=== PATIENT | male | born 1950 | race Caucasian/White ===

== ENCOUNTER 2020-03-26 09:54 | Emergency (ER) | payer OTHER ==
[~2020-03-26] VITALS: Ht 190.5 cm; Wt 147.7 kg
[~2020-03-26 09:54] MED LIST: CIPR250T4 PO; FURO20TA4 PO; LISI1TAB29 PO; METR500T PO; PANT40TA54 PO
[2020-03-26 11:11] LABS: BASOPHILS # (AUTO) 0.1 X10'3 (0-0.2); BASOPHILS % (AUTO) 0.8 % (0-1); EOSINOPHILS # (AUTO) 0.1 X10'3 (0-0.9); HEMATOCRIT 30.6 % (42.0-52.0); HEMOGLOBIN 9.9 g/dl (14.0-17.9); LYMPHOCYTES % (AUTO) 15.6 % (21-51); MEAN CORPUSCULAR HEMOGLOBIN 29.8 PG (27.0-31.0); MEAN CORPUSCULAR HGB CONC 32.3 g/dL (33.0-36.5); MEAN PLATELET VOLUME 6.5 FL (7.4-10.4); MONOCYTES # (AUTO) 0.7 X10'3 (0-0.9); MONOCYTES % (AUTO) 10.9 % (2-12); NEUTROPHILS # (AUTO) 4.5 X10'3 (1.8-7.7); NEUTROPHILS % (AUTO) 70.7 % (42-75); PLATELET COUNT 518 X10'3 (140-440); RED BLOOD COUNT 3.33 X10'6 (4.70-6.10); RED CELL DISTRIBUTION WIDTH 19.8 % (11.5-14.5); WHITE BLOOD COUNT 6.4 X10'3 (4.5-11.0)
[2020-03-26 11:17] LABS: CLARITY,URINE CLEAR (Clear); COLOR,URINE STRAW (Yellow); GLUCOSE, URINE NEGATIVE (Neg); KETONES,URINE NEGATIVE (Neg); LEUKOCYTE ESTERASE ,URINE NEGATIVE (Neg); NITRITES, URINE NEGATIVE (Neg); OCCULT BLOOD,URINE NEGATIVE (Neg); PROTEIN,URINE NEGATIVE (Neg); UROBILINOGEN,URINE 0.2 E.U/dL (0.2-1.0)
[2020-03-26] MEDS ORDERED: LIDOcaine 2% 10ml TOPICAL JELLY (Urojet) TP ONE (11:20)
[2020-03-26 11:22] LABS: UA COLLECTION TYPE FOLEY CATH
[2020-03-26 11:25] LABS: PARTIAL THROMBOPLASTIN TIME 32 SECONDS (22-32)
[2020-03-26 11:26] LABS: ALANINE AMINOTRANSFERASE 9 U/L (12-78); ALBUMIN 1.7 G/DL (3.4-5.0); ALBUMIN/GLOBULIN RATIO 0.4 (1.1-1.5); ALKALINE PHOSPHATASE 53 IU/L (46-116); ANION GAP 11 (8-16); ASPARTATE AMINO TRANSFERASE 10 U/L (10-37); BILIRUBIN,TOTAL 0.3 MG/DL (0.1-1.0); BLOOD UREA NITROGEN 8 MG/DL (7-18); BUN/CREATININE RATIO 6.3 (5.4-32.0); CALCIUM 8.3 MG/DL (8.5-10.1); CHLORIDE 102 MMOL/L (99-107); CREATININE 1.27 MG/DL (0.60-1.10); GLUCOSE 100 MG/DL (70-104); LIPASE < 50 U/L (73-393); SODIUM 139 MMOL/L (135-145); TOTAL CARBON DIOXIDE 26.4 MMOL/L (24-32); TOTAL PROTEIN 6.2 G/DL (6.4-8.2); eGFR 56 ML/MIN
[2020-03-26 11:31] LABS: POTASSIUM 2.7 MMOL/L (3.5-5.1)
[2020-03-26] MEDS ORDERED: potassium Cl 10 mEq/100mL bag IV ONE (11:50)
[2020-03-26] MEDS ORDERED: potassium Cl 20 mEq SR tablet PO ONE (11:50)
[2020-03-26] MEDS ORDERED: loperamide 2mg capsule PO ONE (12:00)
[2020-03-26 12:55] LABS: ANISOCYTOSIS 2+; HYPOCHROMASIA 1+; PLATELET ESTIMATE INCREASED; POLYCHROMASIA FEW; TARGET CELLS FEW; TEAR DROP CELLS FEW
[2020-03-26] MEDS ORDERED: LOPE2CAP PO (13:41)
--- NOTE | 2020-03-26 13:52 | NUR ---
TALKED TO BROTHER MARCO ANTONIO THAT PT WAS READY TO BE PICKED UP AND HE IS MEDICALLY CLEARED. bROTHER EXPRESSED CONCERN ABOUT PT BEING SICK I ASSURED HIM THAT ALL TEST WERE RAN AND THAT PT WAS MEDICATED FOR LOW POTASSIUM AND THAT HE NEEDS TO FOLLOW UP WITH PCP.
[2020-03-26] MEDS ORDERED: CEPH250T PO (14:08)
[2020-03-26 14:35] VITALS: BP 113/76
== END 2020-03-26 14:37 | disposition home or self-care (01) ==
LOC: ER 09:55
DX: R33.9 Retention of urine, unspecified (principal); E87.6 Hypokalemia; R19.7 Diarrhea, unspecified; R60.0 Localized edema; I10 Essential (primary) hypertension; F17.200 Nicotine dependence, unspecified, uncomplicated; E66.01 Morbid (severe) obesity due to excess calories; Z98.890 Other specified postprocedural states; Z79.899 Other long term (current) drug therapy
CPT/HCPCS: 36415; 51702; 71045; 80053; 81003; 83605; 83690; 83880; 84145; 85008; 85025; 85610; 85730; 87040; 93005; 93971; 96365; 99285; J3480